=== PATIENT | male | born 1990 | race Caucasian/White ===

== ENCOUNTER 2017-07-22 19:25 | Emergency (ER) | payer SELFPAY ==
[~2017-07-22 19:25] MED LIST: CHLO.12%30 SWISH-SPIT; CLIN150 PO
[2017-07-22 19:26] VITALS: BP 133/83; PULSE 110; RESP 16; TEMP 98.7; O2SAT 100
--- NOTE | 2017-07-22 21:21 | PD ---
HPI Chief Complaint: Musculoskeletal Complaint Time Seen by Provider: 21:13 Travel History International Travel<30 days: No Contact w/Intl Traveler<30days: No Traveled to known affect area: No History of Present Illness HPI 26-year-old white male presents from her department with complains of left foot pain. He states that he had similar pain in a partially 6 months ago when he was playing basketball but stopped playing basketball and the pain eventually resolved. He's been playing basketball again this past week and has noted increasing pain. He states the pain is across the arch of his foot. Worse when he gets up in the morning. He states the pain is somewhat improved as he walks but that again it worsens throughout the day. Worsen with activity. Some alleviation with elevation. He denies any direct trauma. He does state that he's twisted his ankles in the past but he has not had any recent injury to the ankle. He denies any numbness, tingling or weakness. Pain is moderate. 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 Reported Meds & Prescriptions Reported Meds & Active Scripts Active Peridex Oral Rinse (Chlorhexidine Gluconate) 0.12 % Wilma 15 Ml SWISH-SPIT BID 10 Days Cleocin (Clindamycin HCl) 150 Mg Cap 300 Mg PO Q6 10 Days Review of Systems General / Constitutional: No: Fever Eyes: No: Visual changes HENT: No: Headaches Cardiovascular: No: Chest Pain or Discomfort Respiratory: No: Shortness of Breath Gastrointestinal: No: Abdominal Pain Genitourinary: No: Dysuria Musculoskeletal: Positive: Pain, No: Arthralgias, Limited ROM, Weakness, Edema Skin: No Rash Neurologic: No: Weakness Psychiatric: No: Depression Endocrine: No: Polydipsia Hematologic/Lymphatic: No: Easy Bruising Physical Exam Narrative GENERAL: This is a well-nourished, well-developed patient, in no apparent distress. SKIN: No rashes, ecchymoses or lesions. Warm and dry. HEAD: Atraumatic. Normocephalic. EYES: PERRL, EOMI, no discharge or injection. No scleral icterus. EARS: Clear NOSE: Nasal turbinates appear normal. THROAT: Mucosa pink and moist. Airway patent. NECK: Trachea midline. supple, moves head freely. LUNGS: Clear to auscultation. CV: Regular in rhythm. ABDOMEN: Soft nontender. EXT: No clubbing cyanosis or edema. Examination of left lower extremity reveals pain along the plantar arch area and there is no pain in the heel, no pain in the toes, or forefoot. No pain in the Achilles, ankle, knee or hip. He has intact sensation with good distal pulses. No erythema or warmth. Skin is intact. The right lower extremity as well as upper extremity is unremarkable for acute bony tenderness or deformity. Data Data Last Documented VS Vital Signs Date Time Temp Pulse Resp B/P (MAP) Pulse Ox O2 Delivery O2 Flow Rate FiO2 07/22/17 19:26 98.7 110 16 133/83 (100) 100 Room Air MDM Medical Decision Making Medical Screen Exam Complete: Yes Emergency Medical Condition: Yes Medical Record Reviewed: Yes Differential Diagnosis Differential diagnoses: Sprain, strain, plantar fasciitis Narrative Course This is plantar fasciitis. The patient has been advised on our support, stretching, icing and following up with podiatry. Diagnosis Primary Impression: Plantar fasciitis of left foot Patient Instructions: General Instructions Additional Instructions: Rest. Elevation. Stretching exercises several times a day. Ice bottle therapy as we have discussed. Orthotics for your shoes. 3 Advil 3 times a day. Follow-up with podiatry in 1-2 weeks. Med/Other Pt SpecificInfo: No Meds Exist/No RX given Disposition: 01 DISCHARGE HOME Condition: Stable Erickson Black Jul 22, 2017 21:21
== END 2017-07-22 21:55 | disposition home or self-care (01) ==
LOC: NEPD 19:25
DX: M72.2 Plantar fascial fibromatosis (principal)
CPT/HCPCS: 99282